=== PATIENT | female | born 1980 | race African-American/Black ===

== ENCOUNTER → 2016-09-24 | Outpatient (CLI) | payer OTHER ==
[~2016-09-24] MED LIST: BENZ100C8 PO; CEFD300C3 PO; CLON1TAB2 PO; FURO20TA4 PO; HCA25SU PR; HYDR-34 PO; NIA500ERT PO; NITR-65 PO; OXYC-12 PO; POTA10CA43 PO; TRAM-21 PO; TRZ100T PO
--- OUTSIDE RECORDS SUMMARY | 2016-09-24 16:09 | XMS REPORT ---
Author Author SILVESTRE VELÁZQUEZ Organization [employer] Address Unknown Phone Unavailable Care Team Providers Care Solution Director Name Role Phone SILVESTRE VELÁZQUEZ Unavailable Allergies No Known Allergies Problems Problem Type Condition ICD-9 Code Onset Dates Condition Status Problem Unspecified backache 724.5 Active Problem Urinary tract infection, site not specified 599.0 Active Problem Acute upper respiratory infections of unspecified site 465.9 Active Assessment Dental examination V72.2 Active Problem Other specified symptom associated with female genital organs 625.8 Active Problem Headache 784.0 Active Medications No Known Medications Procedures Procedure Coding System Code Date INTRAORL-PERIAPICAL 1 FILM 67675 CPT-4 D0220 February 14, 2015 BITEWING - SINGLE FILM CPT-4 D0270 February 14, 2015 LTD ORAL EVALUATION - PROBLEM FOCUS CPT-4 D0140 February 14, 2015 EXTRAC ERUPTED TOOTH/EXPOSED ROOT CPT-4 D7140 February 14, 2015 EXTRAC ERUPTED TOOTH/EXPOSED ROOT CPT-4 D7140 February 14, 2015 Results No Known Results Summary Purpose [employer] Submission
== END ==
LOC: LAB 16:04
PROVIDERS: ATTEND Family Medicine
DX: R07.9 Chest pain, unspecified (principal)
CPT/HCPCS: 36415; 84484

== ENCOUNTER 2019-09-20 14:37 | Emergency (ER) | payer SELFPAY ==
[~2019-09-20] VITALS: Ht 167 cm; Wt 116.0 kg
[2019-09-20 15:17] LABS: BILIRUBIN,URINE NEGATIVE (NEGATIVE); CLARITY,URINE CLEAR; COLOR,URINE YELLOW; GLUCOSE, URINE (UA) NEGATIVE (NEGATIVE); KETONES,URINE NEGATIVE (NEGATIVE); LEUKOCYTE ESTERASE ,URINE NEGATIVE (NEGATIVE); NITRITE,URINE NEGATIVE (NEGATIVE); PH,URINE 6.5 (5-9); PROTEIN,URINE NEGATIVE (NEGATIVE)
--- NOTE | 2019-09-20 15:21 | ED Abdominal Pain ---
General Chief Complaint: Abdominal/GI Problems Stated Complaint: CRAMPING;LOWER ABD PAIN Nursing Triage Note: PT CO OF ABD CRAMPING HAS BEEN TAKING MIRLAX FREQUENTLY DIRECTED BY PCP. PT STATES YESTERDAY HAD BM IN AM. HAS JUST BEEN PASSING WATER. RATES DISCOMFORT AT 8/10 Sepsis Screen: No Definite Risk History of Present Illness Date Seen by Provider: Sep 20, 2019 Time Seen by Provider: 15:10 Initial Comments 39 -year-old -[place] female presents for intermittent constipation and diarrhea for 1 week. She was told to take Miralax every 30 min, until passing stools, 3 days ago. She reports in the [employer] hours of 09/19/19 she passed diarrhea and hard stool for 30 min. She didn't turn the lights on, so she is unsure what color her stool was. No previous abdominal surgeries, other than C- sections, last one 9 years ago. Timing/Duration: 2-3 Days Severity/Quality: Mild Location: Generalized Abdomen Radiation: No Radiation Associated Symptoms: No Back Pain, No Chest Pain, No Diaphoresis, No Fever/Chills, No Fatigue, No Headache, No Heartburn, No Nausea/Vomiting, No Rash, No Shortness of Air, No Swelling/Mass in Abdomen, No Syncope, No Weakness, No Other Allergies and Home Medications Allergies Coded Allergies: No Known Drug Allergies (Unverified , 04/22/14) Home Medications Benzonatate 100 Mg Capsule, 1-2 EACH PO Q4-6HR PRN for COUGH Prescribed by: MATTHEW SMITH on 07/25/142331 Cefdinir 300 Mg Capsule, 1 EACH PO BID Prescribed by: MATTHEW SMITH on 07/25/14 2332 Hyoscyamine Sulfate 0.125 Mg Tab.subl, 0.125 MG SL Q4H PRN for PAIN-MILD (1-4) Prescribed by: SWAPNA DOWNS on 09/20/19 1628 Tramadol Hcl 50 Mg Tablet, 50 MG PO Q4H Prescribed by: MATTHEW SMITH on 07/25/14 2332 Patient Home Medication List Home Medication List Reviewed: Yes Review of Systems Review of Systems Constitutional: no symptoms reported, see HPI Gastrointestinal: See HPI, Abdominal Pain, Poor Appetite All Other Systems Reviewed Negative Unless Noted: Yes Past Wbtygve-Ictmbl-Tttyeq Hx Past Med/Social Hx: Reviewed Nursing Past Med/Soc Hx Patient Social History Alcohol Use: Past History Recreational Drug Use: No Smoking Status: Current Everyday Smoker Type Used: Cigarettes Recent Foreign Travel: No Contact w/Someone Who Travel: No Recent Infectious Disease Expo: No Immunizations Up To Date Tetanus Booster (TDap): Unknown Past Medical History Surgeries: Yes Section Respiratory: No Cardiac: No Neurological: No Last Menstrual Period: Sep 03, 2019 Reproductive Disorders: No Sexually Transmitted Disease: No HIV/AIDS: No Gastrointestinal: No Musculoskeletal: No Endocrine: No Cancer: No Psychosocial: Yes Anxiety Integumentary: No Blood Disorders: No Physical Exam Vital Signs Vital Signs - First Documented 09/20/19 09/20/19 14:54 16:42 Temp 36.9 Pulse 64 Resp 18 B/P (MAP) 113/76 (88) Pulse Ox 100 O2 Delivery Room Air Capillary Refill : Less Than 3 Seconds Height/Weight/BMI Height: 5'5" Weight: 260lbs. oz. 117.040702jx; 41.00 BMI Method:Stated General Appearance: WD/WN, no apparent distress Neck: non-tender, full range of motion, supple, normal inspection Respiratory: chest non-tender, lungs clear, normal breath sounds Cardiovascular: normal peripheral pulses, regular rate, rhythm Gastrointestinal: normal bowel sounds, soft; No distended, No guarding, No rebound; tenderness (mild throughout entire abdomen.) Extremities: normal range of motion, non-tender, normal inspection, normal capillary refill Neurologic/Psychiatric: no motor/sensory deficits, alert, normal mood/affect, oriented x 3 Progress/Results/Core Measures Results/Orders Lab Results Laboratory Tests Test 09/20/19 15:12 09/20/19 15:35 Range/Units Urine Color YELLOW Urine Clarity CLEAR Urine pH 6.5 5-9 Urine Specific [place] 1.015 L 1.016-1.022 Urine Protein NEGATIVE NEGATIVE Urine Glucose (UA) NEGATIVE NEGATIVE Urine Ketones NEGATIVE NEGATIVE Urine Nitrite NEGATIVE NEGATIVE Urine Bilirubin NEGATIVE NEGATIVE Urine Urobilinogen 0.2 < = 1.0 MG/DL Urine Leukocyte Esterase NEGATIVE NEGATIVE Urine RBC (Auto) TRACE-I NEGATIVE Urine RBC 2-5 H /HPF Urine WBC 0-2 /HPF Urine Squamous Epithelial Cells 25-50 H /HPF Urine Crystals NONE /LPF Urine Bacteria TRACE /HPF Urine Casts NONE /LPF Urine Mucus NEGATIVE /LPF Urine Culture Indicated NO White Blood Count 10.3 4.3-11.0 10^3/uL Red Blood Count 5.10 4.35-5.85 10^6/uL Hemoglobin 11.6 11.5-16.0 G/DL Hematocrit 37 35-52 % Mean Corpuscular Volume 73 L 80-99 FL Mean Corpuscular Hemoglobin 23 L 25-34 PG Mean Corpuscular Hemoglobin Concent 31 L 32-36 G/DL Red Cell Distribution Width 19.9 H 10.0-14.5 % Platelet Count 383 130-400 10^3/uL Mean Platelet Volume 9.5 7.4-10.4 FL Neutrophils (%) (Auto) 61 42-75 % Lymphocytes (%) (Auto) 32 12-44 % Monocytes (%) (Auto) 6 0-12 % Eosinophils (%) (Auto) 1 0-10 % Basophils (%) (Auto) 0 0-10 % Neutrophils # (Auto) 6.2 1.8-7.8 X 10^3 Lymphocytes # (Auto) 3.3 1.0-4.0 X 10^3 Monocytes # (Auto) 0.7 0.0-1.0 X 10^3 Eosinophils # (Auto) 0.1 0.0-0.3 10^3/uL Basophils # (Auto) 0.0 0.0-0.1 10^3/uL Sodium Level 136 135-145 MMOL/L Potassium Level 4.2 3.6-5.0 MMOL/L Chloride Level 106 98-107 MMOL/L Carbon Dioxide Level 23 21-32 MMOL/L Anion Gap 7 5-14 MMOL/L Blood Urea Nitrogen 5 L 7-18 MG/DL Creatinine 0.76 0.60-1.30 MG/DL Estimat Glomerular Filtration Rate > 60 BUN/Creatinine Ratio 7 Glucose Level 99 70-105 MG/DL Calcium Level 8.9 8.5-10.1 MG/DL Corrected Calcium 9.0 8.5-10.1 MG/DL Total Bilirubin 0.2 0.1-1.0 MG/DL Aspartate Amino Transf (AST/SGOT) 10 5-34 U/L Alanine Aminotransferase (ALT/SGPT) 10 0-55 U/L Alkaline Phosphatase 110 40-136 U/L Total Protein 7.0 6.4-8.2 GM/DL Albumin 3.9 3.2-4.5 GM/DL Amylase Level 53 25-125 U/L Lipase 29 8-78 U/L My Orders Orders - SWAPNA DOWNS Ua Culture If Indicated (09/20/19 14:52) Urine Bedside (09/20/19 14:52) Acute Abd Series (09/20/19 15:28) Hyoscyamine Sl Tablet (Levsin Sl Tablet) (09/20/19 15:30) Amylase (09/20/19 15:28) Cbc With Automated Diff (09/20/19 15:28) Comprehensive Metabolic Panel (09/20/19 15:28) Lipase (09/20/19 15:28) Medications Given in ED Current Medications Medications Dose Ordered Sig/Hilario Route Start Time Stop Time Status Last Admin Dose Admin Hyoscyamine Sulfate 0.125 mg ONCE ONCE PO 09/20/19 15:30 09/20/19 15:31 DC 09/20/19 15:35 0.125 MG Vital Signs/I&O 09/20/19 09/20/19 14:54 16:42 Temp 36.9 36.9 Pulse 64 64 Resp 18 18 B/P (MAP) 113/76 (88) 113/76 (88) Pulse Ox 100 100 O2 Delivery Room Air Blood Pressure Mean: 88 Diagnostic Imaging Diagonstic Imaging: Xray Plain Films/CT/US/NM/MRI: abdomen Comments NAME: BRANDON PRETTY [facility] REC#: [id number] PT STATUS: REG ER : 1980 PHYSICIAN: SWAPNA DOWNS ADMIT DATE: 09/20/19/ER Draft Date of Exam:09/20/19 ACUTE ABD SERIES INDICATION: Abdominal cramping. PA chest, supine and upright abdominal images are obtained. FINDINGS: Lungs are clear. There is no intraperitoneal free air. Bowel gas pattern is normal. There are no pathologic masses or calcifications. IMPRESSION: No acute abnormalities in the abdomen. Dictated on workstation # [id number] Dict: 09/20/19 1606 Trans: 09/20/19 1608 [id number] Interpreted by: BRONSON WHITEHEAD MD Electronically signed by: Reviewed: Reviewed by Me Departure Impression Primary Impression: Abdominal pain Qualified Codes: R10.84 - Generalized abdominal pain Additional Impression: Constipation Qualified Codes: K59.02 - Outlet dysfunction constipation Disposition: HOME, SELF-CARE Condition: Improved Departure-Patient Inst. Decision time for Depature: 16:20 Referrals: [facility]/CELESTINO ALY DO (PCP/Family) Primary Care Physician Patient Instructions: Irritable Bowel Syndrome (DC) Add. Discharge Instructions: Take Dulcolax stool softener one tablet twice daily. Continue to use the MiraLAX one capful, once daily as needed for constipation. Discontinue when having normal stools. Follow-up with your primary care provider at [facility] if symptoms are not improving or worsen. Clear liquid diet for the next 6-8 hours then advance diet as tolerated. Begin a probiotic such as culturelle (OTC) as directed on bottle. Return to the emergency department for new, urgent health care needs. All discharge instructions reviewed with patient and/or family. Voiced understanding. Scripts Hyoscyamine Sulfate (Levsin-Sl) 0.125 Mg Tab.subl 0.125 MG SL Q4H PRN for PAIN-MILD (1-4), #30 TAB 0 Refills Prov: SWAPNA DOWNS 09/20/19 Work/School Note: Work Release Form Date Seen in the Emergency Department: Sep 20, 2019 Return to Work: Sep 21, 2019 Restrictions: No Restrictions SWAPNA DOWNS Sep 20, 2019 15:21
[2019-09-20] MEDS ORDERED: HYOSCYAMINE 0.125 MG (LEVSIN) TAB PO ONE (15:30)
[2019-09-20 15:33] LABS: BACTERIA,URINE TRACE /HPF; SQUAMOUS EPITHELIAL CELL,UR 25-50 /HPF; WBC,URINE 0-2 /HPF
[2019-09-20 15:44] LABS: BASOPHILS % (AUTO) 0 % (0-10); EOSINOPHILS # (AUTO) 0.1 10^3/uL (0.0-0.3); EOSINOPHILS % (AUTO) 1 % (0-10); HEMATOCRIT 37 % (35-52); HEMOGLOBIN 11.6 G/DL (11.5-16.0); LYMPHOCYTES # (AUTO) 3.3 X 10^3 (1.0-4.0); LYMPHOCYTES % (AUTO) 32 % (12-44); MEAN CORPUSCULAR HEMOGLOBIN 23 PG (25-34); MEAN CORPUSCULAR HGB CONC 31 G/DL (32-36); MEAN CORPUSCULAR VOLUME 73 FL (80-99); MEAN PLATELET VOLUME 9.5 FL (7.4-10.4); MONOCYTES # (AUTO) 0.7 X 10^3 (0.0-1.0); MONOCYTES % (AUTO) 6 % (0-12); NEUTROPHILS # (AUTO) 6.2 X 10^3 (1.8-7.8); NEUTROPHILS % (AUTO) 61 % (42-75); PLATELET COUNT 383 10^3/uL (130-400); RED CELL DISTRIBUTION WIDTH 19.9 % (10.0-14.5); WHITE BLOOD COUNT 10.3 10^3/uL (4.3-11.0)
[2019-09-20 16:03] LABS: ALANINE AMINOTRANSFERASE 10 U/L (0-55); ALBUMIN 3.9 GM/DL (3.2-4.5); ALKALINE PHOSPHATASE 110 U/L (40-136); AMYLASE 53 U/L (25-125); BILIRUBIN,TOTAL 0.2 MG/DL (0.1-1.0); BUN/CREATININE RATIO 7; CALCIUM 8.9 MG/DL (8.5-10.1); CARBON DIOXIDE 23 MMOL/L (21-32); CHLORIDE 106 MMOL/L (98-107); CREATININE SERUM 0.76 MG/DL (0.60-1.30); GFR ESTIMATED > 60; GLUCOSE 99 MG/DL (70-105); LIPASE 29 U/L (8-78); POTASSIUM 4.2 MMOL/L (3.6-5.0); SODIUM 136 MMOL/L (135-145)
--- NOTE | 2019-09-20 16:08 | Diagnostic Imaging Report ---
INDICATION: Abdominal cramping. PA chest, supine and upright abdominal images are obtained. FINDINGS: Lungs are clear. There is no intraperitoneal free air. Bowel gas pattern is normal. There are no pathologic masses or calcifications. IMPRESSION: No acute abnormalities in the abdomen. Dictated by: Dictated on workstation # [id number]
[2019-09-20] MEDS ORDERED: HYOS0.1283 SL (16:28)
[2019-09-20 16:42] VITALS: BP 113/76
== END 2019-09-20 16:42 | disposition home or self-care (01) ==
LOC: EDUNIT# 14:37 → ER 14:38
DX: K59.00 Constipation, unspecified (principal); F17.210 Nicotine dependence, cigarettes, uncomplicated
CPT/HCPCS: 36415; 74022; 80053; 81000; 82150; 83690; 84703; 85025

== ENCOUNTER → 2020-09-07 | Outpatient (CLI) | payer OTHER ==
[~2020-09-07] MED LIST changes: +HYOS0.1283 SL
--- NOTE | 2020-09-07 12:14 | Diagnostic Imaging Report ---
INDICATION: Routine screening. Comparison is made with prior mammogram from 09/08/2014. 2-D and 3-D bilateral screening mammography was performed with CAD. Scattered fibroglandular densities are identified bilaterally. No mass or malignant appearing microcalcifications are seen. Axillae are unremarkable. IMPRESSION: BI-RADS Category 1 No mammographic features suspicious for malignancy are identified. ACR BI-RADS Category 1: Negative. Result letter will be mailed to the patient. Note: At least 10% of breast cancer is not imaged by mammography. Dictated by: Dictated on workstation # [id number]
== END ==
LOC: RAD 10:14
PROVIDERS: ATTEND Nurse Practitioner Family
DX: Z12.31 Encounter for screening mammogram for malignant neoplasm of breast (principal)
CPT/HCPCS: 77063; 77067

== ENCOUNTER → 2020-11-28 | Outpatient (CLI) | payer OTHER ==
--- NOTE | 2020-11-28 12:46 | Diagnostic Imaging Report ---
PROCEDURE: MRI lumbar spine. TECHNIQUE: Multiplanar, multisequence MRI of the lumbar spine was performed without contrast. INDICATION: Low back pain with left sciatica. COMPARISON: CT from 04/22/2014 FINDINGS: The last well-formed disc space will labeled L5-S1 for the purposes of this examination. Vertebral body heights and disc heights are preserved. No acute fracture is seen. Alignment is normal with no spondylolisthesis. Soft tissues about the lumbar spine demonstrate no acute abnormality. The conus terminates in appropriate position. T12-L1: No significant disc bulge. No spinal canal or foraminal stenosis. L1-L2: No disc bulge. No spinal canal or foraminal stenosis. L2-L3: No disc bulge. No spinal canal or foraminal stenosis. L3-L4: No significant disc bulge. No spinal canal or foraminal stenosis. L4-L5: Minimal diffuse disc bulge. No spinal canal stenosis. Mild bilateral foraminal narrowing. L5-S1: Minimal diffuse disc bulge. No spinal canal stenosis. Mild bilateral foraminal narrowing. IMPRESSION: 1. No acute abnormalities seen in the lumbar spine. There are minimal disc bulges with mild foraminal narrowing but no high-grade spinal canal or foraminal stenosis. Dictated by: Dictated on workstation # [id number]
== END ==
LOC: RAD 10:33
PROVIDERS: ATTEND Pediatrics
DX: M48.061 Spinal stenosis, lumbar region without neurogenic claudication (principal); M54.42 Lumbago with sciatica, left side
CPT/HCPCS: 72148

== ENCOUNTER 2021-03-20 12:28 | Outpatient (RCR) | payer MEDICAID ==
[2021-03-11] MEDS: IRON SUCROSE 200 MG/10 ML (VENOFER) VIAL IV SCH (12:57)
[2021-03-11 13:05] VITALS: BP 120/79
[2021-03-13] MEDS: IRON SUCROSE 200 MG/10 ML (VENOFER) VIAL IV SCH (13:04)
[2021-03-13 13:40] VITALS: BP 136/88
[2021-03-15 12:35] VITALS: BP_SYST 132; BP_SYST 142; BP_DIAS 98
[2021-03-15] MEDS: IRON SUCROSE 200 MG/10 ML (VENOFER) VIAL IV SCH (12:45)
[2021-03-18] MEDS: IRON SUCROSE 200 MG/10 ML (VENOFER) VIAL IV SCH (13:01)
[2021-03-18 13:04] VITALS: BP 130/75
[~2021-03-20] VITALS: Ht 165 cm; Wt 122.0 kg
[2021-03-20] MEDS: IRON SUCROSE 200 MG/10 ML (VENOFER) VIAL IV SCH (12:43)
[2021-03-20 13:13] VITALS: BP 138/81
== END 2021-03-20 13:21 | disposition home or self-care (01) ==
LOC: SDC 12:28
PROVIDERS: ATTEND Pediatrics
DX: D50.9 Iron deficiency anemia, unspecified (principal)
CPT/HCPCS: 96365; 96374

== ENCOUNTER 2021-06-11 05:30 | Outpatient (CLI) | payer MEDICAID ==
[~2021-06-11] VITALS: Ht 167.7 cm; Wt 124.5 kg
[2021-06-13] MEDS ORDERED: TIZA4TAB4 PO (14:01)
[2021-06-13] MEDS ORDERED: PHEN37.58 PO (14:01)
[2021-06-13] MEDS ORDERED: DULO60CA59 PO (14:01)
[2021-06-13] MEDS ORDERED: GABA300C PO ×2 (14:01)
[2021-06-13] MEDS ORDERED: FERR325T24 PO (14:01)
== END 2021-06-13 14:04 | disposition home or self-care (01) ==
LOC: PREOP 05:30
PROVIDERS: ATTEND Obstetrics & Gynecology
DX: Z01.818 Encounter for other preprocedural examination (principal)

== ENCOUNTER 2021-06-18 07:52 | Day surgery (SDC) | payer MEDICAID ==
[~2021-06-18] VITALS: Ht 167 cm; Wt 124.5 kg
[2021-06-18] VITALS (13 sets, daily range): BP systolic 108–134; BP diastolic 53–85
[~2021-06-18 07:52] MED LIST changes: +DULO60CA59 PO; +FERR325T24 PO; +GABA300C PO; +PHEN37.58 PO; +TIZA-186 PO
[2021-06-18] MEDS: LACTATED RINGERS 1,000 ML IV PRN ×3 (08:10→11:55)
[2021-06-18] MEDS ORDERED: ceFAZolin 2 GM IV Premixed 50 ML IV ONE (08:15)
[2021-06-18 08:16] LABS: BILIRUBIN,URINE 1+ (NEGATIVE); CLARITY,URINE CLOUDY; COLOR,URINE DARK YELLOW; GLUCOSE, URINE (UA) NEGATIVE (NEGATIVE); KETONES,URINE NEGATIVE (NEGATIVE); LEUKOCYTE ESTERASE ,URINE NEGATIVE (NEGATIVE); NITRITE,URINE NEGATIVE (NEGATIVE); PROTEIN,URINE TRACE (NEGATIVE)
[2021-06-18] MEDS ORDERED: LIDOCAINE/EPI 1%-1:100,000 (XYLOCAINE) 20ML ONE (08:25)
[2021-06-18 08:35] LABS: BASOPHILS # (AUTO) 0.1 10^3/uL (0.0-0.1); BASOPHILS % (AUTO) 0 % (0-10); EOSINOPHILS # (AUTO) 0.1 10^3/uL (0.0-0.3); EOSINOPHILS % (AUTO) 0 % (0-10); HEMATOCRIT 47 % (35-52); HEMOGLOBIN 15.7 g/dL (11.5-16.0); LYMPHOCYTES # (AUTO) 3.3 10^3/uL (1.0-4.0); LYMPHOCYTES % (AUTO) 21 % (12-44); MEAN CORPUSCULAR HEMOGLOBIN 30 pg (25-34); MEAN CORPUSCULAR HGB CONC 34 g/dL (32-36); MEAN CORPUSCULAR VOLUME 91 fL (80-99); MEAN PLATELET VOLUME 9.8 fL (9.0-12.2); MONOCYTES # (AUTO) 0.6 10^3/uL (0.0-1.0); MONOCYTES % (AUTO) 4 % (0-12); NEUTROPHILS # (AUTO) 11.8 10^3/uL (1.8-7.8); NEUTROPHILS % (AUTO) 74 % (42-75); PLATELET COUNT 428 10^3/uL (130-400); WHITE BLOOD COUNT 15.9 10^3/uL (4.3-11.0)
[2021-06-18 08:43] LABS: AMORPHOUS SEDIMENT,UR FEW AMOR URATES /LPF; BACTERIA,URINE TRACE /HPF; WBC,URINE 0-2 /HPF
[2021-06-18] MEDS ORDERED: LIDOCAINE PF 2% 5 ML (XYLOCAINE) VIAL ONE (08:50)
[2021-06-18] MEDS ORDERED: ROCURONIUM 10 MG/ML 5 ML SYRINGE IV ONE ×2 (08:50→12:51)
[2021-06-18] MEDS ORDERED: proPOfol 200 MG/20 ML (DIPRIVAN) VIAL IV ONE (08:50)
[2021-06-18] MEDS ORDERED: ONDANSETRON 4 MG/2 ML (SDV) Z0FRAN ONE (08:50)
[2021-06-18] MEDS ORDERED: fentaNYL INJ 100 MCG/2 ML AMP ONE ×2 (08:51→12:18)
[2021-06-18] MEDS ORDERED: MIDAZOLAM 2 MG/2 ML (VERSED) VIAL ONE (08:51)
[2021-06-18 08:53] LABS: LYMPHOCYTES % (MANUAL) 22 %; MONOCYTES % (MANUAL) 4 %; NEUTROPHILS % (MANUAL) 74 %; RBC MORPH NORMAL
--- NOTE | 2021-06-18 10:18 | Progress Note-Pre Operative ---
Pre-Operative Progress Note H&P Reviewed The H&P was reviewed, patient examined and no changes noted. Date Seen by Provider: Jun 18, 2021 Time Seen by Provider: 10:15 Date H&P Reviewed: Jun 18, 2021 Time H&P Reviewed: 08:00 Pre-Operative Diagnosis: UTERINE FIBROIDS, ABNORMAL UTERINE BLEEDING, HISTORY OF CERVICAL DYSPLASIA ROBBIE NAVARRETE DO Jun 18, 2021 10:18
[2021-06-18] MEDS ORDERED: GLYCOPYRROLATE 0.2 MG/ML (ROBINUL) 2 ML VIAL ONE (12:51)
[2021-06-18] MEDS ORDERED: PHENYLEPHRINE 100 MCG/ML 10 ML (ANESTHESIA) SYR ONE (12:51)
[2021-06-18] MEDS ORDERED: NEOSTIGMINE 3 MG/3 ML VIAL ONE (12:51)
--- NOTE | 2021-06-18 13:13 | Operative Report ---
Operative Report Date of Procedure/Surgery Jun 18, 2021 Surgeon (s) ROBBIE NAVARRETE DO Access Services Representative (s): Jose Roberto Nava, MS III Post-Operative Diagnosis abnormal uterine bleeding adenomyosis extensive adhesions (vesicouterine, parauterine,, paratubal, paraovarian) Procedure Performed RaTH, bilateral salpingectomy, extensive lysis of adhesions bisection of the uterus (211 grams) Description of Procedure Anesthesia Type: General Estimated blood loss (mL): minimal Specimen(s) collected/removed uterus and tubes Description of the Procedure After informed consent was obtained, patient was taken into the operating room where general anesthetic was found to be adequate. She was prepped and draped in the usual sterile fashion in the dorsal lithotomy position. A Dowd catheter was placed. A speculum was placed in the vagina. The cervix was visualized and the anterior lip was grasped with a sharp toothed tenaculum. The uterus was sounded and depth was approximately 10 centimeters. I placed the Gabriella device (10 cm) and a 3.5 cm collar was advanced over the cervix. I inserted the Gabriella without difficulty, inflating the balloon and securing it around the fornix of the cervix. The collar was then secured with sutures at 12 o'clock. Attention was then turned to the patient's abdomen. The skin was injected with 0.25% Marcaine. A supraumbilical incision was made about 8 mm in length. A Veress needle was inserted and I confirmed intraabdominal placement with a drop in pressure and the saline drop test. The opening pressure was 6 mmHg. I then insufflated the abdomen to a maximum of 15 mmHg with warmed CO2 gas. I placed an additional 8 mm trocar in the left abdomen lateral to the umbilicus approximately 15 cm lateral. The second robotic port was placed about 12 cm lateral to the right of the umbi lical placement. This was an 8 mm trocar. These were placed under direct visualization of the laparoscope. 0.25% Marcaine was injected prior to placement of all trocars. When all placements were confirmed, the patient was placed in steep Trendelenburg allowing adequate visualization and the robot was brought in for docking. The docking was accomplished without difficulty. I then took over the command of the robot utilizing the synchroseal and monopolar belkys. There was an omental adhesion just inferior to the umbilicus that was taken down with the belkys and there was no bleeding. There was no bowel associated with this adhesion and it was mainly filmy. I was able to visualize the round ligaments bilaterally and grasped them and cauterized with b ipolar cautery and then cut with my belkys. At this point, I then did bilateral salpingectomy. I incised the mesosalpinx with the belkys. Then, I grasped with cornu and transected bilaterally using the vessel sealer. There were adhesions on the tubes and ovaries bilaterally, and these needed to be taken down prior to completing the salpingectomy. I then moved my dissection t o the posterior leaves of the broad ligament. I dissected the posterior leaves of the broad ligament off the uterine arteries skeletonizing them bilaterally. I then took a second clamp with the synchroseal and with the belkys, transected the vessels away from the lateral aspect to the cervical stroma. There were very extensive vesicouterine and parauterine adhesions from the previous 4 sections. These took approximately 30 minutes to take down. I dissected the anterior peritoneum off the lower uterine segment. I continually pushed the bladder back and I took excessively great care and I was eventually able to dissect the vesicouterine peritoneum off the lower uterine segment and the adhesions of the uterus to the pelvic sidewall bilaterally. I then dissected in a V fashion towards the midline between the uterosacral ligaments. This allowed me to skeletonize the uterine vessels bilaterally. The balloon on the GABRIELLA was insufflated. This allowed me to see the GABRIELLA circumferentially. I then performed a colpotomy anteriorly and then amputate with cervix away from the vaginal fornix. I then continued the colpotomy circumferentially. Once this was performed, the outpatient physical therapist assistant attempted to remove the uterus through the vagina, but the uterus was very big and bulky and she had a small outlet and the uterus could not be manipulated to remove it easily. At this point, I took a bipolar grasper and held the uterus while I incised down the middle to allow the uterus to be manipulated out of the vagina. This took over 40 minutes to accomplish. At this point, the bisected uterus and the tubes were removed through the vagina. She then left the a sponge in the vagina to maintain the pneumoperitoneum. . I then began closure of the vaginal cuff. I closed the apices of the vaginal cuff with 2-0 Vicryl V lock sutures with a colposuspension through the uterosacral ligaments. This suspended the apices of the vaginal cuff. I extended this to the midline from both sides and overlapped the V lock sutures in the midline. Excellent closure is noted and hemostasis is achieved. All the needles were removed from the patient's abdomen. Now, the robotic instruments were removed and the robot was docked back to laparoscopy. The pelvis was irrigated. There was no active bleeding noted. Bilateral ureters were seen the entire time during the surgery and were peristalsing. There was no excessive bleeding noted. The trocars were removed under direct visualization. The laparoscopic sites were visualized and found to be hemostatic. The trocar sites were injected with 0.25% Marcaine. The skin incisions were closed with 4-0 Monocryl in a subcuticular fashion and then with Dermabond. Op sites were placed over the incision sites. The instruments were removed from the vagina and I noted there were no abrasions. Sponge, lap, needle and instrument counts correct times two. Patient was awakened and taken to recovery in a stable condition. Findings of the Procedure uterus was bulky and globular adhesions of the tubes to the ovaries and the uterus, omental adhesions, vesicouterine adhesions Allergies and Home Medications Allergies Coded Allergies: No Known Drug Allergies (Unverified , 04/22/14) Patient Home Medication List Home Medication List Reviewed: Yes Acetaminophen (Acetaminophen) 500 Mg Tablet, 1,000 MG PO Q8HR Prescribed by: ROBBIE NAVARRETE on 06/19/21 0756 Duloxetine HCl (Duloxetine HCl) 60 Mg Capsule.dr, 60 MG PO DAILY, (Reported) Entered as Reported by: COOPER CHANEY on 06/13/211400 Last Action: Converted Ferrous Sulfate (Ferosul) 325 Mg Tablet, 325 MG PO DAILY, (Reported) Entered as Reported by: COOPER CHANEY on 06/13/211400 Gabapentin (Neurontin) 300 Mg Capsule, 300 MG PO 0800,1400, (Reported) Entered as Reported by: COOPER CHANEY on 06/13/211400 Last Action: Continued Gabapentin (Neurontin) 300 Mg Capsule, 900 MG PO HS, (Reported) Entered as Reported by: COOPER CHANEY on 06/13/211400 Last Action: Continued Ibuprofen (Ibu) 600 Mg Tablet, 600 MG PO Q6HR Prescribed by: ROBBIE NAVARRETE on 06/19/21 0756 Oxycodone Hcl (Oxyir Tablet) 5 Mg Tab, 5 MG PO Q4HR PRN for PAIN-SEE DOSE INSTRUCTIONS Prescribed by: ROBBIE NAVARRETE on 06/19/21 0757 Phentermine HCl (Phentermine HCl) 37.5 Mg Tablet, 37.5 MG PO DAILY, (Reported) Entered as Reported by: COOPER CHANEY on 06/13/211400 Tizanidine HCl (Tizanidine HCl) 4 Mg Tablet, 4 MG PO BID PRN for MUSCLE SPASMS, (Reported) Entered as Reported by: COOPER CHANEY on 06/13/211400 ROBBIE NAVARRETE DO Jun 18, 2021 13:13
[2021-06-18] MEDS ORDERED: ONDANSETRON 4 MG/2 ML (SDV) Z0FRAN IVP PRN ×2 (13:15→13:30)
[2021-06-18] MEDS ORDERED: NALOXONE 0.4 MG/ML 1 ML (NARCAN) VIAL IV PRN (13:15)
[2021-06-18] MEDS ORDERED: CHLORASEPTIC LOZENGE MM PRN (13:15)
[2021-06-18] MEDS ORDERED: morphine INJ 4 MG/ML 1 ML (VIAL/SYRINGE) IV PRN (13:15)
--- NOTE | 2021-06-18 13:23 | Anesthesia-General Post-Op ---
General Patient Condition Mental Status/LOC: Same as Preop Cardiovascular: Satisfactory Nausea/Vomiting: Absent Respiratory: Satisfactory Pain: Controlled Complications: Absent Post Op Complications Complications None Follow Up Care/Instructions Patient Instructions None needed. Anesthesia/Patient Condition Patient Condition Patient is doing well, no complaints, stable vital signs, no apparent adverse anesthesia problems. No complications reported per nursing. CINDY PINEDA CRNA Jun 18, 2021 13:23
[2021-06-18] MEDS ORDERED: SEVOFLURANE (ULTANE) 15 ML INHAL SOLN ONE (13:25)
[2021-06-18] MEDS: LACTATED RINGERS 1,000 ML IV SCH ×3 (13:29→23:59)
[2021-06-18] MEDS ORDERED: HYDROmorphone 2 MG/ML VIAL (DILAUDID) IV ONE (13:30)
[2021-06-18] MEDS ORDERED: HYDROmorphone 2 MG/ML VIAL (DILAUDID) ONE (13:31)
[2021-06-18] MEDS ORDERED: ACETAMINOPHEN 500 MG TAB (TYLENOL) ONE (15:47)
[2021-06-18] MEDS: ACETAMINOPHEN 500 MG TAB (TYLENOL) PO SCH (15:53)
[2021-06-18] MEDS ORDERED: KETOROLAC 30 MG/ML VIAL ONE (17:30)
[2021-06-18] MEDS: KETOROLAC 30 MG/ML VIAL IV SCH ×2 (17:35→23:59)
[2021-06-18] MEDS ORDERED: PATIENT MAY USE OWN MEDS, ALL MC SCH (18:45)
[2021-06-18] MEDS ORDERED: GABAPENTIN 300 MG (NEURONTIN) CAP PO SCH (21:00)
[2021-06-19] MEDS: ACETAMINOPHEN 500 MG TAB (TYLENOL) PO SCH ×2 (05:06→12:34)
[2021-06-19 06:34] VITALS: BP 106/55
[2021-06-19] MEDS: KETOROLAC 30 MG/ML VIAL IV SCH ×2 (06:36→12:33)
[2021-06-19 07:17] VITALS: BP 119/55
[2021-06-19] MEDS: LACTATED RINGERS 1,000 ML IV SCH (07:26)
[2021-06-19] MEDS ORDERED: ACET-93 PO (07:56)
[2021-06-19] MEDS ORDERED: OXC5T PO (07:56)
[2021-06-19] MEDS ORDERED: IBUP-844 PO (07:56)
--- NOTE | 2021-06-19 07:59 | Discharge Inst-Women's Service ---
Discharge Inst-Women's Serv Depart Medication/Instructions New, Converted or Re-Newed RX: Transmitted to Pharmacy Final Diagnosis adenomyosis abnormal uterine bleeding uterine fibroids history of cervical dysplasia dysmenorrhea Problems Reviewed?: Yes Consults/Follow Up Additional Follow Up: Yes (1-2 weeks with Sophia for incision check and 6-8 weeks for pelvic and follow up with Dr. Carney) Activity Activity: Activity as Tolerated Driving Instructions: No Driving for 1 Week NO SMOKING: NO SMOKING Nothing Inside Vagina: No Douching, No [place], No Tampons Diet Discharge Diet: No Restrictions Symptoms to Report to : Swelling Increased, Bleeding Excessive, Pain Increased, Fever Over 101 Degrees F, Vaginal Bleeding Increase, Cramps in Feet or Legs, Vaginal Discharge Foul For Any Problems or Questions: Contact Your Physician Skin/Wound Care Infection Signs and Symptoms: Increased Redness, Foul Odor of Wound, Increased Drainage, Skin Itchy or Has a Rash, Increased Swelling, Temperature Above 101 F Operative Area Clean and Dry: You May Remove Bandage (in 72 hours) Stitches/Michele/Dermabond: Dermabond Bathing Instructions: ROBBIE Marshall DO Jun 19, 2021 07:59
[2021-06-19] MEDS ORDERED: GABAPENTIN 300 MG (NEURONTIN) CAP PO SCH (08:00)
[2021-06-19] MEDS ORDERED: DULoxetine 30 MG (CYMBALTA) CAP PO SCH (09:00)
[2021-06-19 12:26] VITALS: BP 132/62
[2021-06-19] MEDS ORDERED: IBUPROFEN 600 MG (MOTRIN) TAB PO SCH (18:00)
== END 2021-06-19 13:11 | disposition home or self-care (01) ==
LOC: SDC 07:52 → WS 15:18 → SDC 06-19 13:11
PROVIDERS: ATTEND Obstetrics & Gynecology
DX: N80.0 Endometriosis of uterus (principal); N94.89 Other specified conditions associated with female genital organs and menstrual cycle; N83.8 Other noninflammatory disorders of ovary, fallopian tube and broad ligament; K66.0 Peritoneal adhesions (postprocedural) (postinfection); N93.9 Abnormal uterine and vaginal bleeding, unspecified; D25.9 Leiomyoma of uterus, unspecified; K21.9 Gastro-esophageal reflux disease without esophagitis; E11.9 Type 2 diabetes mellitus without complications; D50.9 Iron deficiency anemia, unspecified; E66.01 Morbid (severe) obesity due to excess calories; F17.210 Nicotine dependence, cigarettes, uncomplicated; Z79.891 Long term (current) use of opiate analgesic; Z79.899 Other long term (current) drug therapy; Z68.41 Body mass index [BMI] 40.0-44.9, adult
CPT/HCPCS: 36415; 81000; 84703; 85007; 85027; 86850; 86900; 86901; 87081; 88307; 94664

== ENCOUNTER → 2021-09-09 | Outpatient (CLI) | payer MEDICAID ==
[~2021-09-09] MED LIST changes: +ACET-93 PO; +IBUP-844 PO; +OXC5T PO
--- NOTE | 2021-09-09 12:41 | Diagnostic Imaging Report ---
INDICATION: Routine screening. COMPARISON: 09/07/2020 and 09/08/2014. TECHNIQUE: 2D and 3D bilateral screening mammography was performed with CAD. FINDINGS: Scattered fibroglandular densities are identified bilaterally. The parenchymal pattern is stable. No mass or malignant-appearing microcalcifications are seen. The axillae are unremarkable. IMPRESSION: No mammographic features suspicious for malignancy are identified. ACR BI-RADS Category 1: Negative. Result letter will be mailed to the patient. Note: At least 10% of breast cancer is not imaged by mammography. Dictated by: Dictated on workstation # [id number]
== END ==
LOC: RAD 10:00
PROVIDERS: ATTEND Obstetrics & Gynecology
DX: Z12.31 Encounter for screening mammogram for malignant neoplasm of breast (principal)
CPT/HCPCS: 77063; 77067

== ENCOUNTER 2022-06-06 22:42 | Emergency (ER) | payer MEDICAID ==
[~2022-06-06] VITALS: Ht 165 cm; Wt 109.0 kg
[2022-06-06 23:00] VITALS: BP 159/88
[2022-06-06 23:34] LABS: BILIRUBIN,URINE NEGATIVE (NEGATIVE); CLARITY,URINE SL CLOUDY; COLOR,URINE YELLOW; GLUCOSE, URINE (UA) NEGATIVE (NEGATIVE); KETONES,URINE NEGATIVE (NEGATIVE); LEUKOCYTE ESTERASE ,URINE NEGATIVE (NEGATIVE); NITRITE,URINE NEGATIVE (NEGATIVE); PH,URINE 6.5 (5-9); PROTEIN,URINE NEGATIVE (NEGATIVE)
[2022-06-06 23:40] LABS: BACTERIA,URINE TRACE /HPF
[2022-06-06] MEDS ORDERED: NS IV 1000 ML 1,000 ML IV SCH (23:45)
[2022-06-06] MEDS ORDERED: KETOROLAC 30 MG/ML VIAL IVP ONE (23:45)
[2022-06-07 00:18] LABS: BASOPHILS % (AUTO) 0 % (0-10); EOSINOPHILS # (AUTO) 0.1 10^3/uL (0.0-0.3); EOSINOPHILS % (AUTO) 2 % (0-10); HEMATOCRIT 39 % (35-52); LYMPHOCYTES # (AUTO) 3.3 10^3/uL (1.0-4.0); LYMPHOCYTES % (AUTO) 34 % (12-44); MEAN CORPUSCULAR HEMOGLOBIN 32 pg (25-34); MEAN CORPUSCULAR HGB CONC 34 g/dL (32-36); MEAN CORPUSCULAR VOLUME 96 fL (80-99); MEAN PLATELET VOLUME 9.9 fL (9.0-12.2); MONOCYTES # (AUTO) 0.6 10^3/uL (0.0-1.0); MONOCYTES % (AUTO) 6 % (0-12); NEUTROPHILS # (AUTO) 5.5 10^3/uL (1.8-7.8); NEUTROPHILS % (AUTO) 58 % (42-75); PLATELET COUNT 256 10^3/uL (130-400); WHITE BLOOD COUNT 9.6 10^3/uL (4.3-11.0)
[2022-06-07 00:40] LABS: ALBUMIN 3.5 GM/DL (3.2-4.5); POTASSIUM 3.4 MMOL/L (3.6-5.0)
[2022-06-07 00:41] LABS: CALCIUM 8.6 MG/DL (8.5-10.1)
[2022-06-07 00:43] LABS: TOTAL PROTEIN 6.3 GM/DL (6.4-8.2)
[2022-06-07 00:45] LABS: BILIRUBIN,TOTAL 0.3 MG/DL (0.1-1.0)
[2022-06-07 00:46] LABS: CREATININE SERUM 0.81 MG/DL (0.60-1.30)
[2022-06-07] MEDS ORDERED: KETO10TA PO (01:31)
[2022-06-07] MEDS ORDERED: CYCL10TA25 PO (01:31)
--- NOTE | 2022-06-07 01:31 | ED Back Pain ---
General Chief Complaint: - Reproductive Stated Complaint: LOW BACK PAIN,ABD PAIN,UTI SYMPTOMS Nursing Triage Note: Pt presents with c/o calf pain, back pain, and fatigue after starting a new job. She is also concerned that it may be due to a UTI, she has noticed burning urination and odor to her urine. Allergies and Home Medications Allergies Coded Allergies: No Known Drug Allergies (Unverified , 04/22/14) Patient Home Medication List Acetaminophen (Acetaminophen) 500 Mg Tablet, 1,000 MG PO Q8HR Prescribed by: ROBBIE NAVARRETE on 06/19/21755 Duloxetine HCl (Duloxetine HCl) 60 Mg Capsule.dr, 60 MG PO DAILY, (Reported) Entered as Reported by: COOPER CHANEY on 06/13/211400 Ferrous Sulfate (Ferosul) 325 Mg Tablet, 325 MG PO DAILY, (Reported) Entered as Reported by: COOPER CHANEY on 06/13/211400 Gabapentin (Neurontin) 300 Mg Capsule, 300 MG PO 0800,1400, (Reported) Entered as Reported by: COOPER CHANEY on 06/13/211400 Gabapentin (Neurontin) 300 Mg Capsule, 900 MG PO HS, (Reported) Entered as Reported by: COOPER CHANEY on 06/13/211400 Ibuprofen (Ibu) 600 Mg Tablet, 600 MG PO Q6HR Prescribed by: ROBBIE NAVARRETE on 06/19/21 075 Oxycodone Hcl (Oxyir Tablet) 5 Mg Tab, 5 MG PO Q4HR PRN for PAIN-SEE DOSE INSTRUCTIONS Prescribed by: ROBBIE NAVARRETE on 06/19/21 075 Phentermine HCl (Phentermine HCl) 37.5 Mg Tablet, 37.5 MG PO DAILY, (Reported) Entered as Reported by: COOPER CHANEY on 06/13/211400 Tizanidine HCl (Tizanidine HCl) 4 Mg Tablet, 4 MG PO BID PRN for MUSCLE SPASMS, (Reported) Entered as Reported by: COOPER CHANEY on 06/13/211400 Past Dcppene-Tcpzfy-Rzafjr Hx Immunizations Up To Date Tetanus Booster (TDap): Unknown First/Initial COVID19 Vaccinat: yes Second COVID19 Vaccination Tejinder: yes Third COVID19 Vaccination Date: yes Seasonal Allergies Seasonal Allergies: Yes Past Medical History Surgeries: Yes (c/s x3, R CTR) Section Respiratory: No Cardiac: No Neurological: Yes Headaches /Migraines Reproductive Disorders: No Sexually Transmitted Disease: No HIV/AIDS: No Genitourinary: No Gastrointestinal: No Musculoskeletal: Yes (muscle spasms) Endocrine: No HEENT: No Cancer: No Psychosocial: Yes Anxiety Integumentary: No Blood Disorders: Yes (anemia) Physical Exam Vital Signs Vital Signs - First Documented 06/06/22 23:00 Temp 35.7 Pulse 86 Resp 18 B/P (MAP) 159/88 (111) Capillary Refill : Less Than 3 Seconds Height, Weight, BMI Height: 5'5" Weight: 260lbs. oz. 117.804970ss; 40.00 BMI Method:Stated Progress/Results/Core Measures Results/Orders Lab Results Laboratory Tests Test 06/06/22 00:07 06/06/22 23:27 Range/Units White Blood Count 9.6 4.3-11.0 10^3/uL Red Blood Count 4.03 3.80-5.11 10^6/uL Hemoglobin 13.0 11.5-16.0 g/dL Hematocrit 39 35-52 % Mean Corpuscular Volume 96 80-99 fL Mean Corpuscular Hemoglobin 32 25-34 pg Mean Corpuscular Hemoglobin Concent 34 32-36 g/dL Red Cell Distribution Width 15.6 H 10.0-14.5 % Platelet Count 256 130-400 10^3/uL Mean Platelet Volume 9.9 9.0-12.2 fL Immature Granulocyte % (Auto) 0 % Neutrophils (%) (Auto) 58 42-75 % Lymphocytes (%) (Auto) 34 12-44 % Monocytes (%) (Auto) 6 0-12 % Eosinophils (%) (Auto) 2 0-10 % Basophils (%) (Auto) 0 0-10 % Neutrophils # (Auto) 5.5 1.8-7.8 10^3/uL Lymphocytes # (Auto) 3.3 1.0-4.0 10^3/uL Monocytes # (Auto) 0.6 0.0-1.0 10^3/uL Eosinophils # (Auto) 0.1 0.0-0.3 10^3/uL Basophils # (Auto) 0.0 0.0-0.1 10^3/uL Immature Granulocyte # (Auto) 0.0 0.0-0.1 10^3/uL Sodium Level 138 135-145 MMOL/L Potassium Level 3.4 L 3.6-5.0 MMOL/L Chloride Level 106 98-107 MMOL/L Carbon Dioxide Level 20 L 21-32 MMOL/L Anion Gap 12 5-14 MMOL/L Blood Urea Nitrogen 9 7-18 MG/DL Creatinine 0.81 0.60-1.30 MG/DL Estimat Glomerular Filtration Rate 93 BUN/Creatinine Ratio 11 Glucose Level 128 H 70-105 MG/DL Calcium Level 8.6 8.5-10.1 MG/DL Corrected Calcium 9.0 8.5-10.1 MG/DL Total Bilirubin 0.3 0.1-1.0 MG/DL Aspartate Amino Transf (AST/SGOT) 16 5-34 U/L Alanine Aminotransferase (ALT/SGPT) 18 0-55 U/L Alkaline Phosphatase 94 40-136 U/L Total Protein 6.3 L 6.4-8.2 GM/DL Albumin 3.5 3.2-4.5 GM/DL Amylase Level 56 25-125 U/L Lipase 44 8-78 U/L Urine Color YELLOW Urine Clarity SL CLOUDY Urine pH 6.5 5-9 Urine Specific [place] 1.020 1.016-1.022 Urine Protein NEGATIVE NEGATIVE Urine Glucose (UA) NEGATIVE NEGATIVE Urine Ketones NEGATIVE NEGATIVE Urine Nitrite NEGATIVE NEGATIVE Urine Bilirubin NEGATIVE NEGATIVE Urine Urobilinogen 0.2 < = 1.0 MG/DL Urine Leukocyte Esterase NEGATIVE NEGATIVE Urine RBC (Auto) NEGATIVE NEGATIVE Urine RBC NONE /HPF Urine WBC NONE /HPF Urine Squamous Epithelial Cells 10-25 H /HPF Urine Crystals NONE /LPF Urine Bacteria TRACE /HPF Urine Casts NONE /LPF Urine Mucus NEGATIVE /LPF Urine Culture Indicated NO My Orders Orders - MATTHEW SMITH DO Ua Culture If Indicated (06/06/22 23:04) Urine Bedside (06/06/22 23:04) Ed Iv/Invasive Line Start (06/06/22 23:41) Amylase (06/06/22 23:41) Cbc With Automated Diff (06/06/22 23:41) Comprehensive Metabolic Panel (06/06/22 23:41) Lipase (06/06/22 23:41) Ketorolac Injection (Toradol Injection) (06/06/22 23:45) Ed Iv/Invasive Line Start (06/06/22 23:43) Ns Iv 1000 Ml (Sodium Chloride 0.9%) (06/06/22 23:45) Ct Abd/Pelvis Wo(Kidney Stone) (06/07/22 00:01) Acute Abd Series (06/07/22 00:01) Medications Given in ED Current Medications Medications Dose Ordered Sig/Hilario Route Start Time Stop Time Status Last Admin Dose Admin Ketorolac Tromethamine 30 mg ONCE ONCE IVP 06/06/22 23:45 06/06/22 23:46 DC 06/07/22 00:41 30 MG Vital Signs/I&O 06/06/22 23:00 Temp 35.7 Pulse 86 Resp 18 B/P (MAP) 159/88 (111) Blood Pressure Mean: 111 Departure Impression Primary Impression: Low back pain Additional Impressions: Nephrolithiasis Mass of left ovary Disposition: HOME, SELF-CARE Condition: Improved Departure-Patient Inst. Decision time for Depature: 01:20 Referrals: [facility] (PCP/Family) Primary Care Physician Patient Instructions: Low Back Pain ED, Kidney Stone, Adult ED, Ovarian Cyst ED Add. Discharge Instructions: MOIST HEAT TO SORE AREAS AT 20 MINUTE INTERVALS LOTS OF CLEAR LIQUIDS FOLLOW UP WITH YOUR DR IN 2-3 DAYS FOR FURTHER CARE, RETURN TO ER IF SYMPTOMS WORSEN All discharge instructions reviewed with patient and/or family. Voiced under standing. Scripts Cyclobenzaprine HCl (Cyclobenzaprine HCl) 10 Mg Tablet 10 MG PO Q8H PRN for SPASMS, #15 TAB 0 Refills Prov: MATTHEW SMITH DO 06/07/22 Ketorolac Tromethamine (Ketorolac Tromethamine) 10 Mg Tablet 10 MG PO Q6H for Pain, #15 TAB Prov: MATTHEW SMITH K DO 06/07/22 MATTHEW SMITH DO Jun 07, 2022 01:31
--- NOTE | 2022-06-07 06:47 | Diagnostic Imaging Report ---
EXAMINATION: CT abdomen and pelvis without contrast. TECHNIQUE: Multiple contiguous axial images were obtained through the abdomen and pelvis without the use of intravenous contrast. All CT scans use one or more of the following dose optimizing techniques: automated exposure control, MA and/or KvP adjustment based on patient size and exam type or iterative reconstruction. HISTORY: Flank pain COMPARISON: None available. FINDINGS: Limited views of the lower thorax are unremarkable. The liver is normal without focal lesion. There is no biliary ductal dilation. Gallbladder is normal. Pancreas is normal. Spleen is normal. Adrenal glands are normal. There are nonobstructing bilateral renal stones the largest on the left measuring 5 mm. There are no ureteral stones. There is a 6 mm stone in the bladder. There is no hydronephrosis. Urinary bladder is normal. There is a septated left adnexal cyst measuring 7.9 x 6.1 cm. Bowel is normal in caliber without obstruction or inflammation. No free fluid or air. No abdominal or pelvic lymphadenopathy. Aorta is normal in caliber without aneurysm. There are no suspicious osseus lesions. IMPRESSION: 1. Bilateral nonobstructing renal stones with a 6 mm bladder stone. 2. Complex left adnexal cyst. Follow-up sonogram recommended. There is no significant disagreement with the preliminary report. Dictated by: Dictated on workstation # [id number]
--- NOTE | 2022-06-07 06:48 | Diagnostic Imaging Report ---
HISTORY: Abdominal pain TECHNIQUE: Frontal view the chest. Supine and upright frontal views of the abdomen COMPARISON: 09/20/2019. CT from 06/07/2022. FINDINGS: Lung volumes are normal. No consolidation is seen. There is no pleural effusion or pneumothorax. The cardiac silhouette is normal in size. There is a calcification at the superior left kidney which measures about 4 mm in size. No definite calculi are seen along the course of the ureters. There is a calcification in the pelvis, may be in the bladder measuring 9 mm. No acute osseous abnormality is seen. There is moderate stool in the colon. No distended loops of small bowel are seen. IMPRESSION: 1. Calculi in the left kidney and bladder as seen on the prior CT. 2. Moderate stool in the colon. Dictated by: Dictated on workstation # [id number]
== END 2022-06-07 01:46 | disposition home or self-care (01) ==
LOC: EDUNIT# 22:42 → ER 22:45
DX: N20.0 Calculus of kidney (principal); N21.0 Calculus in bladder; N83.9 Noninflammatory disorder of ovary, fallopian tube and broad ligament, unspecified
CPT/HCPCS: 36415; 74022; 74176; 80053; 81000; 82150; 83690; 84703; 85025

== ENCOUNTER 2022-07-13 15:36 | Emergency (ER) | payer MEDICAID ==
[~2022-07-13] VITALS: Ht 165 cm; Wt 108.0 kg
[~2022-07-13 15:36] MED LIST changes: +CYCL10TA25 PO; +KETO10TA PO
[2022-07-13 15:45] VITALS: BP 126/87
--- NOTE | 2022-07-13 15:59 | ED GU-Female ---
General Chief Complaint: - Reproductive Stated Complaint: BLOOD IN URINE/VOMITING/LOW BACK PAIN Nursing Triage Note: ARRIVED VIA AMB TO ROOM 02 WITH COMPLAINTS OF LOWER BACK PAIN X3 DAY ET BLOOD IN URINE. HX OF KIDNEY STONE ET WAS SEEN HERE RECENTLY. Source: patient Exam Limitations: no limitations History of Present Illness Date Seen by Provider: Jul 13, 2022 Allergies and Home Medications Allergies Coded Allergies: No Known Drug Allergies (Unverified , 04/22/14) Patient Home Medication List Acetaminophen (Acetaminophen) 500 Mg Tablet, 1,000 MG PO Q8HR Prescribed by: ROBBIE NAVARRETE on 06/19/21755 Cyclobenzaprine HCl (Cyclobenzaprine HCl) 10 Mg Tablet, 10 MG PO Q8H PRN for SPASMS Prescribed by: MATTHEW SMITH on 06/07/22130 Duloxetine HCl (Duloxetine HCl) 60 Mg Capsule.dr, 60 MG PO DAILY, (Reported) Entered as Reported by: COOPER CHANEY on 06/13/211400 Ferrous Sulfate (Ferosul) 325 Mg Tablet, 325 MG PO DAILY, (Reported) Entered as Reported by: COOPER CHANEY on 06/13/211400 Gabapentin (Neurontin) 300 Mg Capsule, 300 MG PO 0800,1400, (Reported) Entered as Reported by: COOPER CHANEY on 06/13/211400 Gabapentin (Neurontin) 300 Mg Capsule, 900 MG PO HS, (Reported) Entered as Reported by: COOPER CHANEY on 06/13/211400 Ibuprofen (Ibu) 600 Mg Tablet, 600 MG PO Q6HR Prescribed by: ROBBIE NAVARRETE on 06/19/21 075 Ketorolac Tromethamine (Ketorolac Tromethamine) 10 Mg Tablet, 10 MG PO Q6H Prescribed by: MATTHEW SMITH on 06/07/22130 Oxycodone Hcl (Oxyir Tablet) 5 Mg Tab, 5 MG PO Q4HR PRN for PAIN-SEE DOSE INSTRUCTIONS Prescribed by: ROBBIE NAVARRETE on 06/19/21756 Phentermine HCl (Phentermine HCl) 37.5 Mg Tablet, 37.5 MG PO DAILY, (Reported) Entered as Reported by: COOPER CHANEY on 06/13/211400 Tizanidine HCl (Tizanidine HCl) 4 Mg Tablet, 4 MG PO BID PRN for MUSCLE SPASMS, (Reported) Entered as Reported by: COOPER CHANEY on 06/13/21 1401 Past Tmlqgtf-Blcmao-Yxywec Hx Immunizations Up To Date Tetanus Booster (TDap): Unknown First/Initial COVID19 Vaccinat: yes Second COVID19 Vaccination Tejinder: yes Third COVID19 Vaccination Date: yes Seasonal Allergies Seasonal Allergies: Yes Past Medical History Surgeries: Yes ( x3; R CARPAL TUNNEL ;HYST/OVARIES INTACT) Section, Hysterectomy, Orthopedic Respiratory: No Cardiac: No Neurological: Yes Headaches /Migraines Reproductive Disorders: Yes Female Reproductive Disorders: Menstrual Problems [employer]ELD [employer] History: Hysterectomy Sexually Transmitted Disease: No HIV/AIDS: No Genitourinary: No Gastrointestinal: No Musculoskeletal: Yes (muscle spasms) Endocrine: Yes (OBESITY) Diabetes, Non-Insulin dep HEENT: No Cancer: No Psychosocial: Yes Anxiety Integumentary: No Blood Disorders: Yes (anemia) Physical Exam Vital Signs Vital Signs - First Documented 07/13/22 15:45 Temp 36.5 Pulse 86 Resp 16 B/P (MAP) 126/87 (100) Pulse Ox 96 O2 Delivery Room Air Capillary Refill : Less Than 3 Seconds Height, Weight, BMI Height: 5'5" Weight: 260lbs. oz. 117.597121fq; 39.00 BMI Method:Stated Progress/Results/Core Measures Suspected Sepsis SIRS Temperature: Pulse: 86 Respiratory Rate: 16 Laboratory Tests 07/13/22 16:10: White Blood Count 10.7 Blood Pressure 126 /87 Mean: 100 Laboratory Tests 07/13/22 16:10: Creatinine 0.79, Platelet Count 333, Total Bilirubin 0.5 Results/Orders Lab Results Laboratory Tests Test 07/13/22 16:10 07/13/22 16:24 Range/Units White Blood Count 10.7 4.3-11.0 10^3/uL Red Blood Count 4.95 3.80-5.11 10^6/uL Hemoglobin 15.8 11.5-16.0 g/dL Hematocrit 48 35-52 % Mean Corpuscular Volume 97 80-99 fL Mean Corpuscular Hemoglobin 32 25-34 pg Mean Corpuscular Hemoglobin Concent 33 32-36 g/dL Red Cell Distribution Width 13.9 10.0-14.5 % Platelet Count 333 130-400 10^3/uL Mean Platelet Volume 9.2 9.0-12.2 fL Immature Granulocyte % (Auto) 0 % Neutrophils (%) (Auto) 69 42-75 % Lymphocytes (%) (Auto) 26 12-44 % Monocytes (%) (Auto) 4 0-12 % Eosinophils (%) (Auto) 1 0-10 % Basophils (%) (Auto) 1 0-10 % Neutrophils # (Auto) 7.4 1.8-7.8 X 10^3 Lymphocytes # (Auto) 2.7 1.0-4.0 X 10^3 Monocytes # (Auto) 0.5 0.0-1.0 X 10^3 Eosinophils # (Auto) 0.1 0.0-0.3 10^3/uL Basophils # (Auto) 0.1 0.0-0.1 10^3/uL Immature Granulocyte # (Auto) 0.0 0.0-0.1 10^3/uL Sodium Level 137 135-145 MMOL/L Potassium Level 3.6 3.6-5.0 MMOL/L Chloride Level 107 98-107 MMOL/L Carbon Dioxide Level 19 L 21-32 MMOL/L Anion Gap 11 5-14 MMOL/L Blood Urea Nitrogen 10 7-18 MG/DL Creatinine 0.79 0.60-1.30 MG/DL Estimat Glomerular Filtration Rate 96 BUN/Creatinine Ratio 13 Glucose Level 129 H 70-105 MG/DL Calcium Level 9.1 8.5-10.1 MG/DL Corrected Calcium 8.9 8.5-10.1 MG/DL Total Bilirubin 0.5 0.1-1.0 MG/DL Aspartate Amino Transf (AST/SGOT) 13 5-34 U/L Alanine Aminotransferase (ALT/SGPT) 12 0-55 U/L Alkaline Phosphatase 94 40-136 U/L Total Protein 7.2 6.4-8.2 GM/DL Albumin 4.2 3.2-4.5 GM/DL Urine Color YELLOW Urine Clarity SL CLOUDY Urine pH 6.0 5-9 Urine Specific [place] 1.025 H 1.016-1.022 Urine Protein NEGATIVE NEGATIVE Urine Glucose (UA) NEGATIVE NEGATIVE Urine Ketones TRACE H NEGATIVE Urine Nitrite NEGATIVE NEGATIVE Urine Bilirubin NEGATIVE NEGATIVE Urine Urobilinogen 1.0 < = 1.0 MG/DL Urine Leukocyte Esterase NEGATIVE NEGATIVE Urine RBC (Auto) 1+ H NEGATIVE Urine RBC 2-5 H /HPF Urine WBC 2-5 /HPF Urine Squamous Epithelial Cells 5-10 /HPF Urine Crystals NONE /LPF Urine Bacteria FEW H /HPF Urine Casts NONE /LPF Urine Mucus SMALL H /LPF Urine Culture Indicated NO My Orders Orders - BRYANT COLORADO APRN Cbc With Automated Diff (07/13/22 16:03) Comprehensive Metabolic Panel (07/13/22 16:03) Iv/Invasive Line Insertion .IV INSERT (07/13/22 16:03) Ua Culture If Indicated (07/13/22 16:03) Ct Abdomen/Pelvis Wo (07/13/22 16:03) Ketorolac Injection (Toradol Injection) (07/13/22 16:15) Medications Given in ED Current Medications Medications Dose Ordered Sig/Hilario Route Start Time Stop Time Status Last Admin Dose Admin Ketorolac Tromethamine 15 mg ONCE ONCE IVP 07/13/22 16:15 07/13/22 16:16 DC 07/13/22 16:15 15 MG Vital Signs/I&O 07/13/22 15:45 Temp 36.5 Pulse 86 Resp 16 B/P (MAP) 126/87 (100) Pulse Ox 96 O2 Delivery Room Air Capillary Refill : Less Than 3 Seconds Blood Pressure Mean: 100 Departure Impression Primary Impression: Left ureteral stone Disposition: 01 HOME, SELF-CARE Condition: Stable Departure-Patient Inst. Decision time for Depature: 17:00 Referrals: [facility] (PCP/Family) Primary Care Physician Patient Instructions: Kidney Stone, Adult ED Scripts Ondansetron (Ondansetron Odt) 4 Mg Tab.rapdis 4 MG SL Q4H PRN for NAUSEA/VOMITING for 5 Days, #20 TAB 0 Refills Prov: BRYANT COLORADO APRN 07/13/22 Tamsulosin HCl (Flomax) 0.4 Mg Cap 0.4 MG PO DAILY for 7 Days, #7 CAP 0 Refills Prov: BRYANT [place]ORADO APRN 07/13/22 Hydrocodone Bit/Acetaminophen (HYDROcodone/APAP 5 MG/325 MG TAB) 1 Tab Tab 1 TAB PO Q6H PRN for PAIN-MODERATE (5-7) for 3 Days, #12 TAB 0 Refills Prov: BRYANT COLORADO APRN 07/13/22 BRYANT COLORADO APRN Jul 13, 2022 15:59
[2022-07-13] MEDS ORDERED: KETOROLAC 30 MG/ML VIAL IVP ONE (16:15)
[2022-07-13 16:27] LABS: BASOPHILS # (AUTO) 0.1 10^3/uL (0.0-0.1); BASOPHILS % (AUTO) 1 % (0-10); EOSINOPHILS # (AUTO) 0.1 10^3/uL (0.0-0.3); EOSINOPHILS % (AUTO) 1 % (0-10); HEMATOCRIT 48 % (35-52); HEMOGLOBIN 15.8 g/dL (11.5-16.0); LYMPHOCYTES # (AUTO) 2.7 X 10^3 (1.0-4.0); LYMPHOCYTES % (AUTO) 26 % (12-44); MEAN CORPUSCULAR HEMOGLOBIN 32 pg (25-34); MEAN CORPUSCULAR HGB CONC 33 g/dL (32-36); MEAN CORPUSCULAR VOLUME 97 fL (80-99); MEAN PLATELET VOLUME 9.2 fL (9.0-12.2); MONOCYTES # (AUTO) 0.5 X 10^3 (0.0-1.0); MONOCYTES % (AUTO) 4 % (0-12); NEUTROPHILS # (AUTO) 7.4 X 10^3 (1.8-7.8); NEUTROPHILS % (AUTO) 69 % (42-75); PLATELET COUNT 333 10^3/uL (130-400); WHITE BLOOD COUNT 10.7 10^3/uL (4.3-11.0)
[2022-07-13 16:33] LABS: BILIRUBIN,URINE NEGATIVE (NEGATIVE); CLARITY,URINE SL CLOUDY; COLOR,URINE YELLOW; GLUCOSE, URINE (UA) NEGATIVE (NEGATIVE); KETONES,URINE TRACE (NEGATIVE); LEUKOCYTE ESTERASE ,URINE NEGATIVE (NEGATIVE); NITRITE,URINE NEGATIVE (NEGATIVE); PROTEIN,URINE NEGATIVE (NEGATIVE)
[2022-07-13 16:41] LABS: BACTERIA,URINE FEW /HPF
[2022-07-13 16:44] LABS: ALBUMIN 4.2 GM/DL (3.2-4.5); BILIRUBIN,TOTAL 0.5 MG/DL (0.1-1.0); CALCIUM 9.1 MG/DL (8.5-10.1); CREATININE SERUM 0.79 MG/DL (0.60-1.30); POTASSIUM 3.6 MMOL/L (3.6-5.0); TOTAL PROTEIN 7.2 GM/DL (6.4-8.2)
--- NOTE | 2022-07-13 16:47 | Diagnostic Imaging Report ---
PROCEDURE: CT abdomen and pelvis without contrast. TECHNIQUE: Multiple contiguous axial images were obtained through the abdomen and pelvis without the use of intravenous contrast. Auto Exposure Controls were utilized during the CT exam to meet ALARA standards for radiation dose reduction. INDICATION: Hematuria. Left-sided flank pain. COMPARISON: 06/07/2022. FINDINGS: The heart is unremarkable. The lung bases are clear. A calculus is seen in the distal left ureter measuring 0.3 cm. No significant hydronephrosis is seen on the left. A nonobstructing calculus is seen in the superior pole of the left kidney measuring 0.6 cm. No hydronephrosis or renal calculi in the right kidney. The urinary bladder is nondistended. The liver, spleen, pancreas and adrenal glands have a normal appearance. There is no pathologically enlarged, mesenteric or retroperitoneal adenopathy. The bowel loops are nondilated. The appendix is visualized in the right lower quadrant and has a normal appearance. There is no free fluid or free air. No acute osseous abnormality. Dominant follicle/cyst is seen in the left ovary measuring 4.4 cm. IMPRESSION: 1. Calculus in the distal left ureter measuring 0.3 cm without associated hydronephrosis. Additional nonobstructing calculus is seen in the superior pole of the left kidney measuring 0.6 cm. 2. Dominant follicle/cyst in the left ovary measuring 4.4 cm. This has decreased in size compared to the prior exam. Dictated by: Dictated on workstation # [id number]
[2022-07-13] MEDS ORDERED: ONDA4TAB11 SL (17:08)
[2022-07-13] MEDS ORDERED: ACHD5005 PO (17:08)
[2022-07-13] MEDS ORDERED: TMSL.4C PO (17:08)
[2022-07-13] MEDS ORDERED: HYDROcodone/APAP 5 MG/325 MG (LORTAB) TAB PO ONE (17:15)
== END 2022-07-13 17:25 | disposition home or self-care (01) ==
LOC: EDUNIT# 15:36 → ER 15:39
DX: N20.2 Calculus of kidney with calculus of ureter (principal); E66.9 Obesity, unspecified; Z68.39 Body mass index [BMI] 39.0-39.9, adult
CPT/HCPCS: 36415; 74176; 80053; 81000; 85025

== ENCOUNTER → 2022-08-01 | Outpatient (CLI) | payer MEDICAID ==
[~2022-08-01] MED LIST changes: +ACHD5005 PO; +ONDA4TAB11 SL; +TMSL.4C PO
--- NOTE | 2022-08-01 13:21 | Diagnostic Imaging Report ---
PROCEDURE: Pelvic comp/transvaginal sonogram. TECHNIQUE: Complete transabdominal and transvaginal pelvic ultrasound was performed. In addition, limited pelvic Doppler was performed. INDICATION: Pelvic pain. Patient status post hysterectomy in 2020. The uterus is surgically absent. Right ovary could not be visualized due to overlying bowel. Left ovary measures 5.8 x 5.5 x 5.2 cm. There is a complex cystic mass in the left adnexa measuring 5.3 x 5.0 x 5.0 cm. It contains internal septations and debris. There is blood flow to the left ovary. No free fluid is identified. IMPRESSION: 1. Status post hysterectomy with nonvisualized right ovary. 2. Complex cystic mass in the left adnexa, likely ovarian. While this could represent a hemorrhagic cyst, other etiologies such as cystic ovarian neoplasm could not be entirely excluded and close interval follow-up with repeat study in 6-8 weeks would be recommended to confirm stability or resolution. Dictated by: Dictated on workstation # [id number]
== END ==
LOC: RAD 12:00
PROVIDERS: ATTEND Obstetrics & Gynecology
DX: N83.8 Other noninflammatory disorders of ovary, fallopian tube and broad ligament (principal); Z90.710 Acquired absence of both cervix and uterus
CPT/HCPCS: 76830; 76856

== ENCOUNTER 2022-09-16 05:33 | Outpatient (CLI) | payer MEDICAID ==
[~2022-09-16] VITALS: Ht 165.1 cm; Wt 108.0 kg
[2022-09-16] MEDS ORDERED: CELE100C84 PO (15:57)
[2022-09-16] MEDS ORDERED: TIRZ5PEN SQ (15:57)
== END 2022-09-16 16:00 | disposition home or self-care (01) ==
LOC: PREOP 05:33
PROVIDERS: ATTEND Obstetrics & Gynecology
DX: Z01.818 Encounter for other preprocedural examination (principal)

== ENCOUNTER 2022-09-23 08:05 | Day surgery (SDC) | payer MEDICAID ==
[2022-09-23] VITALS (12 sets, daily range): BP systolic 87–142; BP diastolic 49–86
[~2022-09-23] VITALS: Ht 165 cm; Wt 108.0 kg
[~2022-09-23 08:05] MED LIST changes: +CELE100C84 PO; +TIRZ5PEN SQ
[2022-09-23] MEDS ORDERED: LACTATED RINGERS 1,000 ML IV PRN (08:15)
--- NOTE | 2022-09-23 08:33 | Progress Note-Pre Operative ---
Pre-Operative Progress Note Date of Available H&P: Sep 23, 2022 Date H&P Reviewed: Sep 23, 2022 Time H&P Reviewed: 08:30 History & Physical: H&P Reviewed, Patient Examed, No changes noted Pre-Operative Diagnosis: Left adnexal cystic mass, Left pelvic pain DARRIUS RODRIGUES DO Sep 23, 2022 08:33
--- NOTE | 2022-09-23 08:35 | Discharge Inst-Women's Service ---
Discharge Inst-Women's Serv Depart Medication/Instructions New, Converted or Re-Newed RX: Transmitted to Pharmacy Problems Reviewed?: Yes Consults/Follow Up Additional Follow Up: Yes Orders/Referrals Dr. Sullivan/Sophia in 2 weeks Activity Activity: Activity as Tolerated Driving Instructions: No Driving for 1 Week NO SMOKING: NO SMOKING Nothing Inside Vagina: No Douching, No [place], No Tampons Diet Discharge Diet: No Restrictions Symptoms to Report to : Bleeding Excessive, Pain Increased, Fever Over 101 Degrees F, Vaginal Bleeding Increase, Questions/Concerns For Any Problems or Questions: Contact Your Physician Skin/Wound Care Infection Signs and Symptoms: Increased Redness, Foul Odor of Wound, Increased Drainage, Skin Itchy or Has a Rash, Increased Swelling, Temperature Above 101 F Operative Area Clean and Dry: Keep Incision Clean/Dry Stitches/Hobbs/Dermabond: Dermabond, Care of Stitches Bathing Instructions: DARRIUS Ramos DO Sep 23, 2022 08:35
[2022-09-23] MEDS ORDERED: ACHD5005 PO (08:39)
[2022-09-23] MEDS ORDERED: IBUP-1773 PO (08:39)
[2022-09-23 08:41] LABS: BASOPHILS % (AUTO) 0 % (0-10); EOSINOPHILS # (AUTO) 0.1 10^3/uL (0.0-0.3); EOSINOPHILS % (AUTO) 1 % (0-10); HEMATOCRIT 48 % (35-52); HEMOGLOBIN 16.2 g/dL (11.5-16.0); LYMPHOCYTES % (AUTO) 27 % (12-44); MEAN CORPUSCULAR HEMOGLOBIN 31 pg (25-34); MEAN CORPUSCULAR HGB CONC 34 g/dL (32-36); MEAN CORPUSCULAR VOLUME 91 fL (80-99); MEAN PLATELET VOLUME 9.9 fL (9.0-12.2); MONOCYTES # (AUTO) 0.6 10^3/uL (0.0-1.0); MONOCYTES % (AUTO) 6 % (0-12); NEUTROPHILS # (AUTO) 7.2 10^3/uL (1.8-7.8); NEUTROPHILS % (AUTO) 66 % (42-75); PLATELET COUNT 316 10^3/uL (130-400)
[2022-09-23] MEDS ORDERED: HYDROcodone/APAP 5 MG/325 MG (LORTAB) TAB PO PRN (08:45)
[2022-09-23] MEDS ORDERED: D5 LR IV SOLUTION 1,000 ML IV SCH (08:45)
[2022-09-23] MEDS ORDERED: ONDANSETRON 4 MG/2 ML (SDV) Z0FRAN IVP PRN ×2 (08:45→11:30)
[2022-09-23] MEDS ORDERED: KETOROLAC 30 MG/ML VIAL IVP ONE (08:45)
[2022-09-23 09:04] LABS: LYMPHOCYTES % (MANUAL) 25 %; MONOCYTES % (MANUAL) 5 %; NEUTROPHILS % (MANUAL) 70 %; RBC MORPH NORMAL
[2022-09-23] MEDS ORDERED: fentaNYL INJ 100 MCG/2 ML AMP ONE (09:04)
[2022-09-23] MEDS ORDERED: MIDAZOLAM 2 MG/2 ML (VERSED) VIAL ONE (09:04)
[2022-09-23] MEDS ORDERED: SEVOFLURANE (ULTANE) 15 ML INHAL SOLN ONE ×2 (09:04→10:54)
[2022-09-23] MEDS ORDERED: LIDOCAINE PF 2% 5 ML (XYLOCAINE) VIAL ONE (09:04)
[2022-09-23] MEDS ORDERED: ONDANSETRON 4 MG/2 ML (SDV) Z0FRAN ONE (09:04)
[2022-09-23] MEDS ORDERED: proPOfol 200 MG/20 ML (DIPRIVAN) VIAL IV ONE (09:04)
[2022-09-23] MEDS ORDERED: BUPIVACAINE 0.25% 30 ML (SENSORCAINE) VIAL ONE (09:40)
[2022-09-23] MEDS ORDERED: BUPIVACAINE 0.25% 30 ML (SENSORCAINE) VIAL INJ ONE (10:38)
[2022-09-23] MEDS ORDERED: HYDROmorphone 2 MG/ML VIAL (DILAUDID) ONE (10:51)
[2022-09-23] MEDS ORDERED: ROCURONIUM 50 MG/5 ML (ZEMURON) VIAL IV ONE (10:53)
[2022-09-23] MEDS ORDERED: GLYCOPYRROLATE 0.2 MG/ML (ROBINUL) 2 ML VIAL ONE (10:54)
[2022-09-23] MEDS ORDERED: NEOSTIGMINE (BLOXIVERZ ) 1 MG/1ML 10 ML VIAL ONE (10:54)
[2022-09-23] MEDS ORDERED: KETOROLAC 30 MG/ML VIAL ONE (10:55)
[2022-09-23] MEDS ORDERED: HYDROmorphone 2 MG/ML VIAL (DILAUDID) IV ONE (11:30)
--- NOTE | 2022-09-23 16:13 | OPERATIVE REPORT ---
DATE OF SERVICE: 09/23/2022 PREOPERATIVE DIAGNOSES: 1. A 42-year-old female with left pelvic pain. 2. Left adnexal cystic mass noted on ultrasound. POSTOPERATIVE DIAGNOSES: 1. A 42-year-old female with left pelvic pain. 2. Left adnexal cystic mass noted on ultrasound. 3. Dense adhesions of the sigmoid colon to the left adnexa. PROCEDURE: Removal of left adnexal cystic mass and lysis of adhesions laparoscopically. SURGEON: Darrius Rodrigues DO BUFFING WHEEL INSPECTOR: Sophia Crawford DNP was necessary for manipulation and retraction throughout the procedure. ANESTHESIA: General endotracheal. ESTIMATED BLOOD LOSS: Minimal. URINE OUTPUT: 50 mL clear at the end of the procedure. FLUIDS: 800 mL lactated Ringer's solution. FINDINGS: Multicystic appearing structure of the left adnexa that is occupying the space of the ovary that is adhesed to the descending sigmoid colon, the left pelvic sidewall. SPECIMEN SENT: Left adnexal mass. INDICATIONS FOR PROCEDURE: This 42-year-old female was a patient who was referred to me from the [facility] for issues with chronic left pelvic pain after the finding of a left ovarian cystic mass. She was sent to my office for further evaluation. I discussed with the patient the findings of her history of a previous hysterectomy performed; however, ovarian preservation made me suspect this was ovarian in nature. I discussed with the patient removal of this laparoscopically. Risk of procedure discussed with the patient in detail and after all of her questions were answered, consent was obtained. The patient was taken to the operating room. DESCRIPTION IN DETAIL: Once in the operating room, anesthesia was administered and found to be adequate. She was placed in the supine position with a leftward tilt, prepped and draped in normal sterile fashion. After Dowd catheter was placed and prepping and draping was performed, I began the case by introducing a Veress needle subcostally at the midclavicular line until intraperitoneal placement was confirmed using saline drop test and opening pressure of 5 mmHg was noted. I proceeded with CO2 insufflation to max pressure of 15 mmHg, at which point I made a 5 mm infraumbilical incision and directed a blunt laparoscopic trocar through the incision. The placement was confirmed using the laparoscope. There was no evidence of damage from entry site. There was no evidence of damage from the Veress needle entry site and the Veress needle was removed at that point. I then the patient was placed into steep Trendelenburg where I was able to visualize the descending sigmoid colon, which was stuck to the left pelvic sidewall and this had to be taken down. I did this by placing a 12 mm suprapubic trocar. It was placed under direct visualization of laparoscope and a left lower quadrant 5 mm trocar, which was placed under direct visualization of laparoscope. Once this was in place, I took down the adhesions of the sigmoid bluntly, which were mainly filmy and ligated down to the level of the ovarian tissue, at which point it was a dense, firm adhesions that had to be taken down carefully, not to injure the ureter or the surrounding sigmoid colon. Once were taken down to the point and the infundibulopelvic ligament could be identified, I used a LigaSure device going across this. I sealed and transected the ovarian tissue and the cystic mass, partial rupture of the cyst occurred in the process of doing this. I then bluntly dissected off the pelvic sidewall and this ovarian adnexal mass. Once it was completely liberated from the pelvic sidewall, I removed it using an Endopouch bag through the suprapubic trocar site after which there is no active bleeding noted from the left pelvic dissection planes. I copiously irrigated the pelvis using normal saline. Once again, there was no active bleeding noted from any of my dissection planes and then removed the trocars other than the suprapubic trocar, which was left in place. The other trocars were identified and found to be without any bleeding or concerns. I then had the patient taken out of Trendelenburg, removed the suprapubic trocar after introduced 10 mL of 0.25% Marcaine in the peritoneal cavity for postoperative pain management, then removed this trocar as well. The skin of all 3 incisions were then reapproximated using 4-0 Monocryl interrupted subcuticular stitches. Dermabond was applied to all incisions and a bandage was placed and the incisions as well. Dowd catheter was removed at the end of the procedure. The patient tolerated the procedure well and was taken to recovery in stable condition. Lap and sponge counts were correct at the end of the procedure. Instrument counts correct as well. Job ID: [id number] DocumentID: [id number] Dictated Date: 09/23/2022 12:24:04 Instrument And Control Technician Date: 09/23/2022 16:12:00 Dictated By: DARRIUS RODRIGUES DO
--- NOTE | 2022-09-24 14:57 | Anesthesia-General Post-Op ---
General Patient Condition Mental Status/LOC: Same as Preop Cardiovascular: Satisfactory Nausea/Vomiting: Absent Respiratory: Satisfactory Pain: Controlled Complications: Absent Post Op Complications Complications None Follow Up Care/Instructions Patient Instructions None needed. Anesthesia/Patient Condition Patient Condition Patient is doing well, no complaints, stable vital signs, no apparent adverse anesthesia problems. No complications reported per nursing. D/C home per [facility] Criteria: Yes CHARLI HOFF CRNA Sep 24, 2022 14:57
== END 2022-09-23 13:53 | disposition home or self-care (01) ==
LOC: SDC 08:05
PROVIDERS: ATTEND Obstetrics & Gynecology
DX: N83.292 Other ovarian cyst, left side (principal); N73.6 Female pelvic peritoneal adhesions (postinfective); F17.210 Nicotine dependence, cigarettes, uncomplicated; E66.9 Obesity, unspecified; Z68.39 Body mass index [BMI] 39.0-39.9, adult
CPT/HCPCS: 36415; 82947; 85007; 85027; 86850; 86900; 86901; 87081; 94664

== ENCOUNTER 2023-04-13 13:08 | Emergency (ER) | payer MEDICAID ==
[~2023-04-13 13:08] MED LIST changes: +IBUP-1773 PO
[2023-04-13] MEDS ORDERED: TRM50T PO (13:37)
--- NOTE | 2023-04-13 13:37 | ED Upper Extremity ---
General Chief Complaint: Upper Extremity Stated Complaint: RT ARM INJ | INJURED ON 04-09-23 Nursing Triage Note: PT CO OF PAIN IN R SHOULDER AND UNDER ARM HURTING FROM FALLING AND BEING DRAGGED BY DOG. PT WAS SEEN AT [facility] ON THURSDAY AND X-RAYED Source: patient Exam Limitations: no limitations History of Present Illness Date Seen by Provider: Apr 13, 2023 Time Seen by Provider: 13:19 Initial Comments 43-year-old female presents to the ER with complaint of right shoulder pain. She states that on , 08/09/2022, she was walking her dog, and the dog tried to run away from her causing her arm to be pulled and her to fall on the ground and be dragged. She complains of pain in her right shoulder and right axillary area, pain is worse with movement. She was seen at [facility] and had x-rays that showed no acute fracture. She states she has been taking Aleve and Tylenol which has not been helping. She got an arm sling from [employer], and has been we aring it, but states it seems to not be helping. Allergies and Home Medications Allergies Coded Allergies: No Known Drug Allergies (Unverified , 09/16/22) Patient Home Medication List Home Medication List Reviewed: Yes Celecoxib (Celecoxib) 100 Mg Capsule, 100 MG PO UD, (Reported) Entered as Reported by: KAITLYNN TALAVERA on 09/16/22 1557 Hydrocodone/Acetaminophen (Hydrocodone-Acetamin 5-325 mg) 5 Mg-325 Mg Tablet, 2 EA PO Q6HR PRN for PAIN-MODERATE (5-7) Prescribed by: DARRIUS RODRIGUES on 09/23/22 0839 Ibuprofen (Ibuprofen) 600 Mg Tablet, 600 MG PO Q6H Prescribed by: DARRIUS RODRIGUES on 09/23/22 0839 Tirzepatide (Mounjaro) 5 Mg/0.5 Ml Pen.injctr, 5 MG SQ UD, (Reported) Entered as Reported by: KAITLYNN TALAVERA on 09/16/22 1557 Tramadol HCl (Tramadol HCl) 50 Mg Tablet, 50 MG PO Q4H PRN for PAIN Prescribed by: Enriqueta Koehler on 04/13/23 1338 Review of Systems Constitutional: see HPI Musculoskeletal: see HPI Past [id number] Hx Patient Social History Tobacco Use?: Yes Tobacco type used: Cigarettes Smoking Status: Current Everyday Smoker Substance use?: No Alcohol Use?: No Pt feels they are or have been: No Immunizations Up To Date Tetanus Booster (TDap): Unknown First/Initial COVID19 Vaccinat: 2020 Second COVID19 Vaccination Tejinder: 2020 Third COVID19 Vaccination Date: 2021 Seasonal Allergies Seasonal Allergies: Yes Past Medical History Surgery/Hospitalization HX: OVARY SURG Surgeries: Yes ( x3; R CARPAL TUNNEL ;HYST/OVARIES INTACT) Section, Orthopedic Respiratory: No Currently Using CPAP: No Currently Using BIPAP: No Cardiac: No Neurological: Yes Headaches /Migraines Reproductive Disorders: Yes Female Reproductive Disorders: 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 oz. [id number]; 39.66 BMI Method:Stated General Appearance: WD/WN, no apparent distress Neck: supple, normal inspection Cardiovascular: regular rate, rhythm Respiratory: lungs clear, normal breath sounds, no respiratory distress, no accessory muscle use Shoulder: limited ROM, pain, soft tissue tenderness Neurologic/Psychiatric: alert, normal mood/affect Skin: normal color, warm/dry Progress/Results/Core Measures Results/Orders Vital Signs/I&O 04/13/23 04/13/23 13:12 13:42 Temp 36.8 36.8 Pulse 81 81 Resp 18 18 B/P (MAP) 124/85 (98) 124/85 Pulse Ox 98 98 Blood Pressure Mean: 98 Progress Progress Note : Progress Note Patient seen and evaluated, resting in recliner, no acute distress. Patient has significant pain with minimal movement of right shoulder. Patient instructed to wear the sling, to make sure that it is tight enough and actually providing support. I will discharge patient with prescription for tramadol. Patient instructed to follow-up with orthopedics. Will also also provide a work note. Discharge instructions and return precautions provided. Departure Impression Primary Impression: Right shoulder injury Disposition: HOME, SELF-CARE Condition: Stable Departure-Patient Inst. Decision time for Depature: 13:35 Referrals: KASSI SHARP DO (PCP/Family) STEPHANIE CHOU MD, MICHAEL P MD Patient Instructions: Shoulder Sprain (DC) Add. Discharge Instructions: Wear your sling for comfort. Take tramadol as needed for pain. It can cause sleepiness. Do not drive while taking it. Continue taking Aleve and Tylenol. Ice your shoulder for 20 minutes at a time several times a day. Follow-up with Dr. Chou, Dr. Ramirez, or any other orthopedic doctor of your choice. Return for any new, concerning, or worsening symptoms. All discharge instructions reviewed with patient and/or family. Voiced understanding. Scripts Tramadol HCl (Tramadol HCl) 50 Mg Tablet 50 MG PO Q4H PRN for PAIN, #12 TAB 0 Refills Prov: ENRIQUETA CRUZ APRN 04/13/23 Work/School Note: Work Release Form Date Seen in the Emergency Department: Apr 13, 2023 Return to Work: Apr 16, 2023 Other Restrictions Listed Below: limited use of right arm, no lifting greater than 5 pounds ENRIQUETA CRUZ APRN Apr 13, 2023 13:37
[2023-04-13 13:42] VITALS: BP 124/85
== END 2023-04-13 13:43 | disposition home or self-care (01) ==
LOC: EDUNIT# 13:08 → ER 13:11
DX: S49.91XA Unspecified injury of right shoulder and upper arm, initial encounter (principal); E66.9 Obesity, unspecified; F17.210 Nicotine dependence, cigarettes, uncomplicated; Z68.39 Body mass index [BMI] 39.0-39.9, adult; W18.30XA Fall on same level, unspecified, initial encounter; Y93.K1 Activity, walking an animal
CPT/HCPCS: 99281

== ENCOUNTER → 2023-04-21 | Outpatient (CLI) | payer MEDICAID ==
[~2023-04-21] MED LIST changes: +TRM50T PO
== END ==
LOC: ORTHO 14:31
PROVIDERS: ATTEND Orthopaedic Surgery
DX: S66.911D Strain of unspecified muscle, fascia and tendon at wrist and hand level, right hand, subsequent encounter (principal); X58.XXXD Exposure to other specified factors, subsequent encounter
CPT/HCPCS: 99203

== ENCOUNTER → 2023-05-07 | Outpatient (CLI) | payer MEDICAID ==
[~2023-05-07] MED LIST changes: -CELE100C84 PO; +CELE100C85 PO
== END ==
LOC: ORTHO 11:18
PROVIDERS: ATTEND Orthopaedic Surgery
DX: M67.813 Other specified disorders of tendon, right shoulder (principal)
CPT/HCPCS: 20610; G0463; 99213

== ENCOUNTER → 2023-06-09 | Outpatient (CLI) | payer MEDICAID ==
[~2023-06-09] MED LIST changes: +CELE-112 PO; -CELE100C85 PO
== END ==
LOC: ORTHO 10:38
PROVIDERS: ATTEND Orthopaedic Surgery
DX: M75.91 Shoulder lesion, unspecified, right shoulder (principal)
CPT/HCPCS: 99213